=== PATIENT | male | born 2000 | race Native Hawaiian/Other Pacific Islander ===

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

== ENCOUNTER 2021-03-01 08:51 | Outpatient (CLI) | payer OTHER, MEDICAID ==
[2021-03-01] MEDS ORDERED: ALBUTEROL 1 PUFF INH STA (10:11)
== END 2021-03-01 08:52 | disposition home or self-care (01) ==
LOC: RT 08:51
PROVIDERS: ATTEND Physician Assistant
DX: Z02.9 Encounter for administrative examinations, unspecified (principal); Z87.09 Personal history of other diseases of the respiratory system
CPT/HCPCS: 94060